=== PATIENT | female | born 1965 | race Caucasian/White ===

== ENCOUNTER 2019-01-29 20:45 | Emergency (ER) | payer OTHER | END 2019-01-29 23:40 | disposition home or self-care (01) | LOC: FTE 20:45 | DX: S49.92XA Unspecified injury of left shoulder and upper arm, initial encounter (principal); M75.82 Other shoulder lesions, left shoulder; X50.9XXA Other and unspecified overexertion or strenuous movements or postures, initial encounter; Y92.9 Unspecified place or not applicable | CPT/HCPCS: 73030; 99283-25 ==